=== PATIENT | male | born 1950 | race Caucasian/White ===

== ENCOUNTER 2019-01-15 05:50 | Day surgery (SDC) | payer OTHER ==
[~2019-01-15] VITALS: Ht 180.3 cm; Wt 112.9 kg
[~2019-01-15 05:50] MED LIST: CHONDROITIN; FISH OIL 1,0001 CA1 PO; FLOMAX0.4 MG PO; GARLIC; LIPITOR20 MG PO; NITROQUICK0.4 MG SL; PRINIVIL10 MG PO; PROSCAR5 MG PO; TOPROL XL100 MG
[2019-01-15 06:40] LABS: HEMATOCRIT 42.2 % (42.0-54.0); HEMOGLOBIN 14.6 g/dL (13.5-17.5); MCH 32.3 pg (26.0-34.0); MCHC 34.6 g/dL (31.0-37.0); MCV 93.4 fL (80.0-100.0); MEAN PLATELET VOLUME 9.3 fL (7.4-10.4); RBC 4.52 10x6/uL (4.20-6.10); RDW 13.6 % (11.5-14.5); WBC 6.8 10x3/uL (4.8-10.8)
[2019-01-15] MEDS ORDERED: TYLENOL PM1 TAB PO (06:43)
[2019-01-15] MEDS ORDERED: IBUPROFEN200 MG PO (06:44)
[2019-01-15 06:48] VITALS: BP 123/68; Ht 180.3 cm; Wt 112.9 kg
--- NOTE | 2019-01-15 09:09 | OP ---
PATIENT NAME: KB PEREZ MEDICAL RECORD: [id number] :52 LOCATION:[facility] ADMISSION DATE: SURGEON: MARIA ELENA HARRISON MD DATE OF OPERATION: 01/15/2019 SURGEON: Maria Elena Harrison MD ANESTHESIA: TIVA by Iraj James CRNA DIAGNOSIS: Obstructive BPH. PSA is 1.0, IPSS score is 22, quality of life score is 5 with tamsulosin and finasteride. DAYANA 40 mL prostate. FINDINGS: On cystoscopy, obstructive lateral lobes. No median lobe. Single ureteral orifices bilaterally with no bladder tumors. PROCEDURE: UroLift times 5 units deployed, 4 held in position. BLOOD LOSS: Minimal. CLINICAL HISTORY: This is a 68-year-old male with a chief complaint of obstructive BPH symptoms, which presented as urinary frequency every 1 to 2-1/2 hours at night. He does not have daytime urinary frequency. He has urgency, hesitancy, and a weak urinary stream. He has been on tamsulosin and finasteride since at least December of 2017. The finasteride was since November of 2018. When we saw him in the office, his postvoid residual was 243 mL and we had him void again. He finally managed to get to a PVR of 0 mL. He has, on digital rectal examination, a 40 gram prostate. IPSS score is 22 and quality of life score is 5 with the patient on the 2 medications. He wishes to have the UroLift procedure done. HE IS ALLERGIC TO PENICILLIN. He was given Levaquin IV customer care professional to the OR. DESCRIPTION OF PROCEDURE: The patient was given IV sedation. He was then placed in dorsal lithotomy position and prepped and draped. We introduced the UroLift scope and noticed no penile urethral strictures. There are obstructive lateral lobes of the prostate. Two bladder neck units were fired one on each side and the anterior lateral lobes. They were placed 1.5 cm distal to the bladder neck. We then placed 2 more units at the level of the verumontanum. On the right side, the unit implanted without any difficulty. On the left side, I hit bone or some other substance on the opposite side of the prostate and the unit initially would not deploy properly. We had to remove this unit. A fifth unit was fired in the left verumontanum level and this one held in correct position. The bladder was then emptied through the cystoscope and then the patient was awakened and brought to the preoperative holding area. I will see him in followup in 1 month's time. TRANSINT:[id number] Voice Confirmation ID: [id number] DOCUMENT ID: [id number] OPERATIVE REPORT [id number] KB PEREZ ROBERT S MD at 0909 CC: [id number] DICTATION DATE: 01/15/19837 SPOR[employer] MEDICINE SPECIALIST: 01/15/19 [id number] [place] [address]
== END 2019-01-15 09:30 | disposition home or self-care (01) ==
LOC: D.OPS 05:50 → D.PAN 09:30 → D.OPS 10:00 → D.PAN 10:00
PROVIDERS: Anesthesiology; ATTEND Urology
DX: N40.1 Benign prostatic hyperplasia with lower urinary tract symptoms (principal); N13.8 Other obstructive and reflux uropathy; R35.0 Frequency of micturition; R39.11 Hesitancy of micturition; R39.15 Urgency of urination; R39.12 Poor urinary stream; Z88.0 Allergy status to penicillin; Z01.812 Encounter for preprocedural laboratory examination

== ENCOUNTER 2019-01-15 19:27 | Emergency (ER) | payer OTHER ==
[~2019-01-15] VITALS: Ht 180.3 cm; Wt 113.2 kg
[~2019-01-15 19:27] MED LIST changes: +IBUPROFEN200 MG PO; +TYLENOL PM1 TAB PO
[2019-01-15 19:30] VITALS: Ht 180.3 cm; Wt 113.2 kg
[2019-01-15 20:41] VITALS: BP 176/89
== END 2019-01-15 20:41 | disposition home or self-care (01) ==
LOC: D.ER 19:27
DX: R33.9 Retention of urine, unspecified (principal)

== ENCOUNTER → 2019-09-04 10:36 | Outpatient (CLI) | payer OTHER ==
[2019-01-15 19:30] VITALS: BMI 34.8
== END | disposition home or self-care (01) ==
LOC: D.US 10:36
PROVIDERS: ATTEND Family Medicine
DX: N50.819 Testicular pain, unspecified (principal)